=== PATIENT | male | born 1955 | race Hispanic/Latino ===

== ENCOUNTER 2021-10-14 12:34 | Emergency (ER) | payer OTHER ==
[~2021-10-14] VITALS: Ht 157.5 cm; Wt 79.4 kg
[2021-10-14] MEDS ORDERED: ACETAMINOPHEN 325 MG TAB PO ONE (13:45)
[2021-10-14] MEDS ORDERED: ACETAMINOPHEN500 MG PO (14:31)
[2021-10-14] MEDS ORDERED: IBUPROFEN200 MG PO (14:31)
== END 2021-10-14 14:55 | disposition home or self-care (01) ==
LOC: FSED 12:35
DX: S00.83XA Contusion of other part of head, initial encounter (principal); S00.81XA Abrasion of other part of head, initial encounter; V43.52XA Car driver injured in collision with other type car in traffic accident, initial encounter; Y92.488 Other paved roadways as the place of occurrence of the external cause; Z86.16 Personal history of COVID-19
CPT/HCPCS: 70450; 70486; 72125; 99283